=== PATIENT | male | born 1980 | race Caucasian/White ===

== ENCOUNTER 2017-12-07 07:38 | Emergency (ER) | payer OTHER ==
[~2017-12-07] VITALS: Ht 188 cm; Wt 158.8 kg
[2017-12-07] MEDS ORDERED: METOPROLOL TART25 MG ORAL (07:52)
[2017-12-07] MEDS ORDERED: Ketorolac 30mg Inj IV ONE (08:00)
--- NOTE | 2017-12-07 08:09 | Emergency Room Report ---
History of Present Illness General Chief Complaint: Male Urogenital Problems Source: Patient Present Illness HPI 37-year-old male, history of kidney stones, history of left-sided stent placement, presenting with flank pain. Patient states that he has right-sided flank pain, radiating to groin, occurred this morning. One episode of nausea and vomiting. No fever no chills. No gross hematuria. States that this feels similar to his kidney stones. States his last kidney stone was 2 months ago, which she received a CAT scan at [facility], states that it was 1-2 mm and then resolved on its own. Allergies: Coded Allergies: METOCLOPRAMIDE (Verified Allergy, Unknown, 12/07/17) Patient History Past Medical History: see triage record Past Surgical History: none Pertinent Family History: none Reviewed Nursing Documentation: PMH: Agreed; PSxH: Agreed Nursing Documentation-PMH Hx Hypertension: Yes Review of Systems All Other Systems: negative except mentioned in HPI Physical Exam Vital Signs Date Time Temp Pulse Resp B/P (MAP) Pulse Ox O2 Delivery O2 Flow Rate FiO2 12/07/17 07:42 98.0 112 20 156/81 95 Room Air 98.1 Sp02 EP Interpretation: reviewed, normal General Appearance: alert, non-toxic, moderate distress Head: normocephalic, atraumatic Eyes: bilateral eye normal inspection, bilateral eye PERRL, bilateral eye EOMI ENT: normal ENT inspection, normal pharynx, normal voice, moist mucus membranes Neck: normal inspection, full range of motion, supple Respiratory: normal inspection, lungs clear, normal breath sounds, no respiratory distress, no retraction, no wheezing, speaking full sentences, chest symmetrical Cardiovascular #1: normal inspection, regular rate, rhythm, no edema, normal capillary refill Cardiovascular #2: 2+ radial (R), 2+ radial (L) Gastrointestinal: normal inspection, non tender, soft, non-distended, no guarding Genitourinary: no CVA tenderness Musculoskeletal: normal inspection, back normal, normal range of motion, non- tender Neurologic: normal inspection, alert, oriented x3, responsive, motor strength/ tone normal, sensory intact, normal gait, speech normal Psychiatric: normal inspection, judgement/insight normal, memory normal Skin: normal inspection, normal color, no rash, warm/dry, well hydrated, normal turgor Medical Decision Making Diagnostic Impression: Primary Impression: Flank pain Additional Impression: History of kidney stones ER Course 37-year-old male with history of renal stones presented with right sided flank pain x few hours DDX: nephrolithiasis VS infected stone vs. pyelonephritis vs. UTI Plan: Labs - cbc, bmp, ua, ucx IVF Renal ultrasound vs. CT abdo pelvis ER course: Labs: +UA with RBCs. Creatinine normal Renal US performed by me at bedside: Hydronephrosis on the left side which patient states is chronic from stent placement, very mild right-sided hydro Shared decision making with patient, since patient has received multiple CAT scans, and right-sided [place] very minimal, will hold CAT scan, just given IV fluids and pain control Patient feels much better, pain scale 1-2 Will DC home with urology fu Disposition: Patient will be discharged to home with Rx for motrin, flomax. Patient will also be given rx for [place] for break-through pain. Patient instructed to follow up with urology within 1 week. Strict return precautions discussed with patient such as severe or worsening flank pain, high fever, chills, n/v. Patient verbalized understanding and agrees with plan. Please note that this Emergency Department Report was dictated using [employer] crm developer technology software, occasionally this can lead to erroneous entry secondary to interpretation by the dictation equipment Rhythm Strip EP Interpretation: Yes Rate: 91 Rhythm: NSR, no PVCs, no ectopy Laboratory Tests Test 12/07/17 08:00 White Blood Count 8.4 K/UL (4.8-10.8) Red Blood Count 6.07 M/UL (4.70-6.10) Hemoglobin 18.2 G/DL (14.2-18.0) *H Hematocrit 54.1 % (42.0-52.0) H Mean Corpuscular Volume 89 FL (80-99) Mean Corpuscular Hemoglobin 30.0 PG (27.0-31.0) Mean Corpuscular Hemoglobin Concent 33.6 G/DL (32.0-36.0) Red Cell Distribution Width 11.7 % (11.6-14.8) Platelet Count 283 K/UL (150-450) Mean Platelet Volume 6.6 FL (6.5-10.1) Neutrophils (%) (Auto) 44.4 % (45.0-75.0) L Lymphocytes (%) (Auto) 43.1 % (20.0-45.0) Monocytes (%) (Auto) 6.5 % (1.0-10.0) Eosinophils (%) (Auto) 5.1 % (0.0-3.0) H Basophils (%) (Auto) 1.0 % (0.0-2.0) Urine Color Yellow Urine Appearance Clear Urine pH 6 (4.5-8.0) Urine Specific [place] 1.025 (1.005-1.035) Urine Protein 2+ (NEGATIVE) H Urine Glucose (UA) 3+ (NEGATIVE) H Urine Ketones 1+ (NEGATIVE) H Urine Occult Blood 5+ (NEGATIVE) H Urine Nitrite Negative (NEGATIVE) Urine Bilirubin Negative (NEGATIVE) Urine Urobilinogen Normal MG/DL (0.0-1.0) Urine Leukocyte Esterase Negative (NEGATIVE) Urine RBC 20-30 /HPF (0 - 0) H Urine WBC 0-2 /HPF (0 - 0) Urine Squamous Epithelial Cells Occasional /LPF Urine Bacteria Few /HPF (NONE) Sodium Level 137 MMOL/L (136-145) Potassium Level 3.7 MMOL/L (3.5-5.1) Chloride Level 100 MMOL/L (98-107) Carbon Dioxide Level 28 MMOL/L (21-32) Anion Gap 9 mmol/L (5-15) Blood Urea Nitrogen 13 mg/dL (7-18) Creatinine 1.0 MG/DL (0.55-1.30) Estimate Glomerular Filtration Rate > 60 mL/min (>60) Glucose Level 238 MG/DL (74-106) H Calcium Level 8.5 MG/DL (8.5-10.1) Total Bilirubin 1.2 MG/DL (0.2-1.0) H Direct Bilirubin 0.3 MG/DL (0.0-0.3) Aspartate Amino Transferase (AST) 39 U/L (15-37) H Alanine Aminotransferase (ALT) 62 U/L (12-78) Alkaline Phosphatase 118 U/L (46-116) H Total Protein 7.6 G/DL (6.4-8.2) Albumin 4.0 G/DL (3.4-5.0) Globulin 3.6 g/dL Albumin/Globulin Ratio 1.1 (1.0-2.7) Lipase 212 U/L (73-393) Last Vital Signs Date Time Temp Pulse Resp B/P (MAP) Pulse Ox O2 Delivery O2 Flow Rate FiO2 12/07/17 07:42 98.0 112 20 156/81 95 Room Air 98.1 Disposition: HOME, SELF-CARE Condition: Improved Scripts Hydrocodone Bit/Acetaminophen 5-325* (NORCO 5-325*) 1 Each Tablet 1 TAB ORAL Q6H PRN for For Pain, #10 TAB 0 Refills Prov: Andreea Villegas M.D. 12/07/17 Ibuprofen* (MOTRIN*) 600 Mg Tablet 600 MG ORAL Q8H PRN for For Pain, #30 TAB 0 Refills Prov: Andreea Villegas M.D. 12/07/17 Tamsulosin Hcl (TAMSULOSIN HCL*) 0.4 Mg Cap.er.24h 0.4 MG ORAL BEDTIME, #14 CAP Prov: Andreea Villegas M.D. 12/07/17 Andreea Villegas M.D. Dec 07, 2017 08:09
[2017-12-07] MEDS ORDERED: Morphine Sulfate 4mg/ml Inj IVP ONE (08:15)
[2017-12-07 08:17] VITALS: BP 125/92
[2017-12-07 08:19] LABS: APPEARANCE,URINE CLEAR; BILIRUBIN, URINE NEGATIVE (NEGATIVE); GLUCOSE, URINE (UA) 3+ (NEGATIVE); KETONES,URINE 1+ (NEGATIVE); LEUKOCYTE ESTERASE ,URINE NEGATIVE (NEGATIVE); NITRITE,URINE NEGATIVE (NEGATIVE); PH,URINE 6 (4.5-8.0); PROTEIN,URINE 2+ (NEGATIVE); UROBILINOGEN,URINE NORMAL MG/DL (0.0-1.0)
[2017-12-07 08:20] LABS: EOSINOPHILS % (AUTO) 5.1 % (0.0-3.0); HEMATOCRIT 54.1 % (42.0-52.0); LYMPHOCYTES % (AUTO) 43.1 % (20.0-45.0); MEAN CORPUSCULAR VOLUME 89 FL (80-99); MONOCYTES % (AUTO) 6.5 % (1.0-10.0); NEUTROPHILS % (AUTO) 44.4 % (45.0-75.0); PLATELET COUNT 283 K/UL (150-450); RED BLOOD COUNT 6.07 M/UL (4.70-6.10); RED CELL DISTRIBUTION WIDTH 11.7 % (11.6-14.8); WHITE BLOOD COUNT 8.4 K/UL (4.8-10.8)
[2017-12-07 08:21] LABS: HEMOGLOBIN 18.2 G/DL (14.2-18.0)
[2017-12-07 08:22] LABS: ANION GAP 9 mmol/L (5-15); BLOOD UREA NITROGEN 13 mg/dL (7-18); CALCIUM 8.5 MG/DL (8.5-10.1); CARBON DIOXIDE 28 MMOL/L (21-32); CHLORIDE 100 MMOL/L (98-107); POTASSIUM 3.7 MMOL/L (3.5-5.1); SODIUM 137 MMOL/L (136-145)
[2017-12-07 08:24] LABS: COLOR,URINE YELLOW
[2017-12-07 08:33] LABS: ALANINE AMINOTRANSFERASE 62 U/L (12-78); ALBUMIN/GLOBULIN RATIO 1.1 (1.0-2.7); ALKALINE PHOSPHATASE 118 U/L (46-116); ASPARTATE AMINO TRANSFERASE 39 U/L (15-37); BILIRUBIN,TOTAL 1.2 MG/DL (0.2-1.0)
[2017-12-07 08:36] LABS: BILIRUBIN,DIRECT 0.3 MG/DL (0.0-0.3)
[2017-12-07] MEDS ORDERED: IBUPROFEN600 MG ORAL (08:39)
[2017-12-07] MEDS ORDERED: TAMSULOSIN HCL0.4 MG ORAL (08:39)
[2017-12-07] MEDS ORDERED: NORCO 5-325 TA1 EACH ORAL (08:39)
[2017-12-07 10:00] VITALS: BP 93/64
== END 2017-12-07 10:01 | disposition home or self-care (01) ==
LOC: EMR 08:22
DX: R10.9 Unspecified abdominal pain (principal); I10 Essential (primary) hypertension; Z88.8 Allergy status to other drugs, medicaments and biological substances; Z87.442 Personal history of urinary calculi
CPT/HCPCS: 36415; 80053; 81003; 82248; 83690; 85025; 96374; 96375; 99284; J1885

== ENCOUNTER 2018-08-02 14:59 | Emergency (ER) | payer OTHER ==
[~2018-08-02] VITALS: Ht 188 cm; Wt 158.8 kg
[~2018-08-02 14:59] MED LIST: IBUPROFEN600 MG ORAL; METOPROLOL TART25 MG ORAL; NORCO 5-325 TA1 EACH ORAL; TAMSULOSIN HCL0.4 MG ORAL
--- NOTE | 2018-08-02 15:14 | Emergency Room Report ---
History of Present Illness General Chief Complaint: Pain Source: Medical Record Present Illness HPI This is a 38-year-old male with a history of known kidney stones and is followed up by a urologist at [facility], who complains of severe left flank pain related to left abdomen that started about 3 hours prior to arrival. Interim pain. No exacerbating or leading factor. Associated nausea and vomiting. Denies any dysuria or fever. Similar pain to previous episodes. Allergies: Coded Allergies: METOCLOPRAMIDE (Verified Allergy, Unknown, 12/07/17) Patient History Past Medical History: HTN Past Surgical History: none Pertinent Family History: none Nursing Documentation-[facility] Past Medical History: No History, Except For Hx Hypertension: Yes Review of Systems All Other Systems: negative except mentioned in HPI Physical Exam Vital Signs Date Time Temp Pulse Resp B/P (MAP) Pulse Ox O2 Delivery O2 Flow Rate FiO2 08/02/18 15:05 97.9 101 26 162/113 97 Room Air General Appearance: no apparent distress, alert, GCS 15, non-toxic Eyes: bilateral eye normal inspection, bilateral eye PERRL Respiratory: chest non-tender, lungs clear, normal breath sounds, speaking full sentences Cardiovascular #1: regular rate, rhythm, no edema Gastrointestinal: normal inspection, normal bowel sounds, non tender, soft Genitourinary: CVA tenderness (L) Neurologic: normal inspection, alert, oriented x3, responsive Medical Decision Making Diagnostic Impression: Primary Impression: Pain Additional Impression: Flank pain ER Course Patient presented with significant complexes or risk requiring multiple evaluations. Respiratory very concerned about possible obstruction, infected stone. Patient does have a history of kidney stones. He was given IV Dilaudid narcotic medications. He has improved significantly. IV fluid was given for volume resuscitation. Did review the patient's blood work and urinalysis. I see no signs of infection. I see no signs of kidney failure or obstructive uropathy. Given this fact, the patient will be discharged home. He is tolerating a by mouth challenge. He is alert. He is nontoxic-appearing. Laboratory Tests Test 08/02/18 15:17 08/02/18 17:20 White Blood Count 9.5 K/UL (4.8-10.8) Red Blood Count 6.38 M/UL (4.70-6.10) H Hemoglobin 18.3 G/DL (14.2-18.0) *H Hematocrit 53.8 % (42.0-52.0) H Mean Corpuscular Volume 84 FL (80-99) Mean Corpuscular Hemoglobin 28.6 PG (27.0-31.0) Mean Corpuscular Hemoglobin Concent 34.0 G/DL (32.0-36.0) Red Cell Distribution Width 12.1 % (11.6-14.8) Platelet Count 309 K/UL (150-450) Mean Platelet Volume 6.3 FL (6.5-10.1) L Neutrophils (%) (Auto) 56.5 % (45.0-75.0) Lymphocytes (%) (Auto) 33.8 % (20.0-45.0) Monocytes (%) (Auto) 5.8 % (1.0-10.0) Eosinophils (%) (Auto) 2.9 % (0.0-3.0) Basophils (%) (Auto) 0.9 % (0.0-2.0) Sodium Level 140 MMOL/L (136-145) Potassium Level 4.1 MMOL/L (3.5-5.1) Chloride Level 101 MMOL/L (98-107) Carbon Dioxide Level 31 MMOL/L (21-32) Anion Gap 8 mmol/L (5-15) Blood Urea Nitrogen 11 mg/dL (7-18) Creatinine 1.2 MG/DL (0.55-1.30) Estimate Glomerular Filtration Rate > 60 mL/min (>60) Glucose Level 188 MG/DL (74-106) H Calcium Level 9.7 MG/DL (8.5-10.1) Urine Color Yellow Urine Appearance Clear Urine pH 7 (4.5-8.0) Urine Specific [place] 1.010 (1.005-1.035) Urine Protein 2+ (NEGATIVE) H Urine Glucose (UA) Negative (NEGATIVE) Urine Ketones Negative (NEGATIVE) Urine Blood 1+ (NEGATIVE) H Urine Nitrite Negative (NEGATIVE) Urine Bilirubin Negative (NEGATIVE) Urine Urobilinogen Normal MG/DL (0.0-1.0) Urine Leukocyte Esterase Negative (NEGATIVE) Urine RBC 0-2 /HPF (0 - 0) H Urine WBC 0-2 /HPF (0 - 0) Urine Squamous Epithelial Cells None /LPF (NONE/OCC) Urine Bacteria Few /HPF (NONE) CT/MRI/US Diagnostic Results CT/MRI/US Diagnostic Results : Impression kidney ultrasound shows moderate left hydronephros Last Vital Signs Date Time Temp Pulse Resp B/P (MAP) Pulse Ox O2 Delivery O2 Flow Rate FiO2 08/02/18 15:05 97.9 101 26 162/113 97 Room Air Status: improved Disposition: HOME, SELF-CARE Condition: Stable Scripts Tamsulosin Hcl (TAMSULOSIN HCL*) 0.4 Mg Cap.er.24h 0.4 MG ORAL BEDTIME for 7 Days, CAP Prov: CONSTANZA ORTEGA 08/02/18 Ondansetron (Zofran) 4 Mg Tablet 4 MG ORAL Q6H PRN for Nausea & Vomiting, #30 TAB 0 Refills Prov: CONSTANZA ORTEGA 08/02/18 Hydrocodone Bit/Acetaminophen 5-325* (NORCO 5-325*) 1 Each Tablet 1 TAB ORAL Q6H PRN for For Pain, #20 TAB 0 Refills Prov: CONSTANZA ORTEGA 08/02/18 Patient Instructions: Kidney Stones, [id number] CONSTANZA ORTEGA Aug 02, 2018 15:14
[2018-08-02] MEDS ORDERED: HYDROmorphone 1mg/ml Carpuject IVP ONE (15:15)
[2018-08-02 15:26] LABS: BASOPHILS % (AUTO) 0.9 % (0.0-2.0); EOSINOPHILS % (AUTO) 2.9 % (0.0-3.0); HEMATOCRIT 53.8 % (42.0-52.0); LYMPHOCYTES % (AUTO) 33.8 % (20.0-45.0); MEAN CORPUSCULAR VOLUME 84 FL (80-99); MONOCYTES % (AUTO) 5.8 % (1.0-10.0); NEUTROPHILS % (AUTO) 56.5 % (45.0-75.0); PLATELET COUNT 309 K/UL (150-450); RED BLOOD COUNT 6.38 M/UL (4.70-6.10); RED CELL DISTRIBUTION WIDTH 12.1 % (11.6-14.8); WHITE BLOOD COUNT 9.5 K/UL (4.8-10.8)
[2018-08-02 15:32] LABS: HEMOGLOBIN 18.3 G/DL (14.2-18.0)
[2018-08-02 15:38] LABS: ANION GAP 8 mmol/L (5-15); BLOOD UREA NITROGEN 11 mg/dL (7-18); CALCIUM 9.7 MG/DL (8.5-10.1); CARBON DIOXIDE 31 MMOL/L (21-32); CHLORIDE 101 MMOL/L (98-107); CREATININE 1.2 MG/DL (0.55-1.30); POTASSIUM 4.1 MMOL/L (3.5-5.1); SODIUM 140 MMOL/L (136-145)
[2018-08-02] MEDS ORDERED: HYDROmorphone 1mg/NS 50ml IVPB 50 ML IVPB ONE (16:00)
[2018-08-02] MEDS ORDERED: Ketorolac 30mg Inj ONE (16:49)
--- NOTE | 2018-08-02 16:57 | Diagnostic Imaging Report ---
Indication: Abdominal pain Technique: Grayscale and duplex images of the kidneys, retroperitoneum, and bladder were obtained. Comparison: none Findings: Right kidney measures 12.4 cm in length. Left kidney measures 17.7 cm in length. Suspect that the left renal length is exaggerated, as it was difficult to visualize. Both kidneys demonstrate normal echogenicity. There is moderate left hydronephrosis and proximal hydroureter. No focal abnormality. Nonvisualized inferior vena cava due to overlying bowel gas. Bladder is normal. Bilateral ureteral jets are seen within the bladder. Impression: Moderate left hydronephrosis. Etiology not demonstrated Note inability to visualize inferior vena cava.
[2018-08-02] MEDS ORDERED: Ketorolac 30mg Inj IV ONE (17:00)
[2018-08-02 17:31] VITALS: BP 122/75
[2018-08-02 17:38] LABS: APPEARANCE,URINE CLEAR; BILIRUBIN, URINE NEGATIVE (NEGATIVE); GLUCOSE, URINE (UA) NEGATIVE (NEGATIVE); KETONES,URINE NEGATIVE (NEGATIVE); LEUKOCYTE ESTERASE ,URINE NEGATIVE (NEGATIVE); NITRITE,URINE NEGATIVE (NEGATIVE); PH,URINE 7 (4.5-8.0); PROTEIN,URINE 2+ (NEGATIVE); UROBILINOGEN,URINE NORMAL MG/DL (0.0-1.0)
[2018-08-02 17:42] LABS: COLOR,URINE YELLOW
[2018-08-02] MEDS ORDERED: ZOFRAN4 MG ORAL (18:12)
[2018-08-02] MEDS ORDERED: NORCO 5-325 TA1 EACH ORAL (18:12)
[2018-08-02] MEDS ORDERED: TAMSULOSIN HCL0.4 MG ORAL (18:12)
[2018-08-02 18:30] VITALS: BP 125/75
== END 2018-08-02 18:30 | disposition home or self-care (01) ==
LOC: EMR 15:36
DX: R52 Pain, unspecified (principal); R10.9 Unspecified abdominal pain; Z87.442 Personal history of urinary calculi; Z88.8 Allergy status to other drugs, medicaments and biological substances
CPT/HCPCS: 36415; 76770; 80048; 81003; 85025; 96361; 96374; 96375; 96376; 99284; J1170; J1885; J2405